=== PATIENT | female | born 1985 | race Caucasian/White ===

== ENCOUNTER 2016-05-09 01:43 | Emergency (ER) | payer OTHER ==
[2016-05-09] MEDS ORDERED: ONDANSETRON 4 MG/2 ML VIAL IVP ONE ×2 (02:03→04:17)
[2016-05-09] MEDS ORDERED: ONDANSETRON 4 MG/2 ML VIAL ONE ×2 (02:03→04:14)
[2016-05-09 02:27] LABS: % IMMATURE GRANULYOCYTES 0.3 % (0.0-1.1); ABSOLUTE IMMATURE GRANULOCYTES 0.02 10^3/uL (0.00-0.10); ADD DIFF? NO; ADD MORPH? NO; ADD SCAN? NO; ATYPICAL LYMPHOCYTE FLAG 0 (0-99); FRAGMENT RBC FLAG 0 (0-99); HEMATOCRIT 40.6 % (38.0-47.0); HEMOGLOBIN 14.2 g/dL (12.6-16.3); LEFT SHIFT FLG 0 (0-99); LIPEMIA HEMOLYSIS FLAG 90 (0-99); MEAN CELL VOLUME 82.9 fL (81.5-99.8); MEAN PLATELET VOLUME 10.6 fL (8.7-11.7); PLATELET CLUMPS FLAG 0 (0-99); PLATELET COUNT 192 10^3/uL (150-400); RED CELL DISTRIBUTION WIDTH 11.5 % (11.5-15.2)
[2016-05-09 02:37] LABS: ALANINE AMINOTRANSFERASE 43 IU/L (9-52); ALBUMIN 4.1 g/dL (3.5-5.0); ALKALINE PHOSPHATASE 53 IU/L (38-126); ANION GAP 13 mEq/L (8-16); ASPARTATE AMINOTRANSFERASE 28 IU/L (14-46); BILIRUBIN,TOTAL 0.6 mg/dL (0.1-1.4); CALCIUM 9.2 mg/dL (8.5-10.4); CARBON DIOXIDE 25 mEq/l (22-31); CHLORIDE 103 mEq/L (97-110); CREATININE 0.7 mg/dL (0.6-1.0); GLOMERULAR FILTRATION RATE > 60; GLUCOSE 104 mg/dL (70-100); POTASSIUM 3.3 mEq/L (3.5-5.2); SODIUM 141 mEq/L (134-144); TOTAL PROTEIN 7.1 g/dL (6.3-8.2)
[2016-05-09] MEDS ORDERED: IOPAMIDOL (ISOVUE-300) 50 ML VIAL IV ONE (03:30)
--- NOTE | 2016-05-09 04:03 | EDPHY ---
H & P Stated Complaint: ABD PAIN TONIGHT, DIARR 1930, NAUSEA, DRY HEAVES, NEG COLONOSCOPY,ANXIETY Time Seen by Provider: 05/09/16 02:00 HPI/ROS: HPI The patient presents with lower abdominal pain which is sharp and constant and has been present for the last 1 day. It is moderate in severity. She has a history of a celiac disease and 2 days ago underwent colonoscopy at [facility]. Biopsies were performed and she had a polyp removed. She says she was sleepy for the 1st day after the procedure and when she became more awake today she had this pain. She has also had nonbloody diarrhea with no vomiting. She does not have a fever. REVIEW OF SYSTEMS Constitutional: No fever, no chills. Eyes: No discharge. ENT: No sore throat. Cardiovascular: No chest pain, no palpitations. Respiratory: No cough, no shortness of breath. Gastrointestinal: See HPI Genitourinary: No hematuria. Musculoskeletal: No back pain. Skin: No rashes. Neurological: No headache. PMHx: Celiac disease Soc Hx: No tobacco use PHYSICAL General Appearance: Alert, no distress Eyes: Pupils equal and round no pallor or injection ENT, Mouth: Mucous membranes moist Respiratory: There are no retractions, lungs are clear to auscultation Cardiovascular: Regular rate and rhythm Gastrointestinal: Abdomen is soft with tenderness in both lower quadrants without any rebound or guarding Neurological: A&O, moves all extremities Skin: Warm and dry, no rashes Musculoskeletal: Neck is supple non tender Extremities: symmetrical, full range of motion Psychiatric: Patient is oriented X 3, there is no agitation Source: Patient, Family Exam Limitations: No limitations - Personal History LMP (Females 10-55): Irregular Current Tetanus/Diphtheria Vaccine: Unsure - Medical/Surgical History Hx Asthma: No Hx Chronic Respiratory Disease: No Hx Diabetes: No Hx Cardiac Disease: No Hx Renal Disease: No Hx Cirrhosis: No Hx Alcoholism: No Hx HIV/AIDS: No Hx Splenectomy or Spleen Trauma: No Other PMH: Ciliacs disease, ANEMIA - Social History Smoking Status: Never smoked Constitutional: Initial Vital Signs Temperature (C) 36.5 C 05/09/16 01:49 Heart Rate 99 05/09/16 01:49 Respiratory Rate 22 H 05/09/16 01:49 Blood Pressure 132/82 H 05/09/16 01:49 O2 Sat (%) 97 05/09/16 01:49 O2 Delivery Mode Room Air Allergies/Adverse Reactions: gluten [Gluten] Allergy (Verified 05/09/16 01:48) rice Allergy (Verified 05/09/16 01:48) soy Allergy (Verified 05/09/16 01:48) Home Medications: Medication Instructions Recorded Amphet Asp and D/Amphet [Adderall 0 mg PO DAILY 08/04/10 10 mg] DULoxetine [Cymbalta] 0 mg PO HS 08/04/10 Supplements 05/09/16 Medical Decision Making ED Course/Re-evaluation: In the emergency room, IV line was established the patient was given IV fluids. She was given a dose of Zofran with some improvement in her symptoms. She said she was initially feeling panicky, though felt more calm after receiving the IV fluids. Basic labs were checked and were remarkable only for a slightly low potassium. I reexamined her and she had continued abdominal tenderness. Using shared decision making, I offered the patient CT scanning here in the emergency room now verses watchful waiting of her pain. She would like to proceed with CT scan because she feels the pain is above and beyond her usual. CT scan was performed and showed constipation with no other acute findings. I discussed the results with her and she was happy to know that there were no serious findings. We plan to discharge her home, I have encouraged her to drink plenty of fluids. She will follow up with her GI doctors as planned. Differential Diagnosis: This is a 30-year-old female with celiac disease, anxiety who presents from home with lower abdominal pain 2 days after having an uncomplicated colonoscopy with biopsies and polypectomy performed. On exam, she has normal vital signs though is tender in her lower quadrants. Differential diagnosis includes bowel perforation, abscess, appendicitis, diverticulitis less likely, colitis. - Data Points Laboratory Results: Laboratory Results 05/09/16 02:05 05/09/16 02:05 05/09/16 02:05 WBC 7.32 10^3/uL (3.80-9.50) RBC 4.90 10^6/uL (4.18-5.33) Hgb 14.2 g/dL (12.6-16.3) Hct 40.6 % (38.0-47.0) MCV 82.9 fL (81.5-99.8) MCH 29.0 pg (27.9-34.1) MCHC 35.0 g/dL (32.4-36.7) RDW 11.5 % (11.5-15.2) Plt Count 192 10^3/uL (150-400) MPV 10.6 fL (8.7-11.7) Neut % (Auto) 55.5 % (39.3-74.2) Lymph % (Auto) 36.7 % (15.0-45.0) [place] % (Auto) 6.6 % (4.5-13.0) Eos % (Auto) 0.8 % (0.6-7.6) Baso % (Auto) 0.1 L % (0.3-1.7) Nucleat RBC Rel Count 0.0 % (0.0-0.2) Absolute Neuts (auto) 4.06 10^3/uL (1.70-6.50) Absolute Lymphs (auto) 2.69 10^3/uL (1.00-3.00) Absolute Monos (auto) 0.48 10^3/uL (0.30-0.80) Absolute Eos (auto) 0.06 10^3/uL (0.03-0.40) Absolute Basos (auto) 0.01 L 10^3/uL (0.02-0.10) Absolute Nucleated RBC 0.00 10^3/uL (0-0.01) Immature Gran % 0.3 % (0.0-1.1) Immature Gran # 0.02 10^3/uL (0.00-0.10) Sodium 141 mEq/L (134-144) Potassium 3.3 L mEq/L (3.5-5.2) Chloride 103 mEq/L (97-110) Carbon Dioxide 25 mEq/l (22-31) Anion Gap 13 mEq/L (8-16) BUN 15 mg/dL (7-23) Creatinine 0.7 mg/dL (0.6-1.0) Estimated GFR > 60 Glucose 104 H mg/dL (70-100) Calcium 9.2 mg/dL (8.5-10.4) Total Bilirubin 0.6 mg/dL (0.1-1.4) AST 28 IU/L (14-46) ALT 43 IU/L (9-52) Alkaline Phosphatase 53 IU/L (38-126) Total Protein 7.1 g/dL (6.3-8.2) Albumin 4.1 g/dL (3.5-5.0) Medications Given: Discontinued Medications Ondansetron HCl (Zofran) 4 mg IVP EDNOW ONE Stop: 05/09/16 02:04 Last Admin: 05/09/16 02:09 Dose: 4 mg Departure - Departure Disposition: Home, Routine, Self-Care Clinical Impression: Abdominal pain Condition: Good Instructions: Acute Abdominal Pain (ED) Additional Instructions: Please make sure to drink plenty of fluids. You can take Tylenol as needed for the pain or start taking the medication that was prescribed by the steam pressure chamber operator. You should return to the emergency room if your worse in any way. Referrals: Annelise Milian MD [Primary Care Provider] - As per Instructions
[2016-05-09] MEDS ORDERED: ONDANSETRON 4MG PREPACK#2 BTL TAKEHOME ONE ×2 (04:11→04:17)
[2016-05-09 04:17] VITALS: RESP 16
[2016-05-09 04:50] VITALS: BP 116/62; PULSE 72; TEMP 97.9; O2SAT 98
--- NOTE | 2016-05-09 09:47 | CT ---
CT Scan of the Abdomen and Pelvis (With Contrast) May 09, 2016 Indication: Abdominal pain. Recent colonoscopy. Technique: No oral or rectal contrast. 90 mL of Isovue-300 were given intravenously by machine power injection. Multidetector helical CT imaging was performed from the diaphragm to the symphysis pubis . Dose reduction techniques were utilized. Findings: No pneumoperitoneum, retroperitoneal gas, free fluid, abscess, lymphadenopathy, or mass. La rge volume retained stool is present throughout the colon and moderate volume of food products are pr esent throughout the mildly distended stomach. The appendix is normal. Mild periportal edema and distention of the inferior vena cava are suggestive of aggressive IV hydrat ion. The liver, spleen, pancreas, gallbladder, and adrenal glands are normal. The abdominal aorta is normal caliber. No plaque. The uterus, ovaries, and urinary bladder are normal. Lung bases are clear. The heart size is normal. Normal bones. Impression: 1. No evidence of bowel perforation. 2. Constipation. 3. Normal solid organs. 4. Normal appendix. The study was performed as an emergency on-call case and discussed by telephone with Dr. Gomez 4:00 a.m. The final interpretation is concordant with the original communication.
== END 2016-05-09 04:50 | disposition home or self-care (01) ==
DX: R10.31 Right lower quadrant pain (principal); R10.32 Left lower quadrant pain
CPT/HCPCS: 96374; J2405; Q9967

== ENCOUNTER 2016-11-14 07:29 | Emergency (ER) | payer OTHER ==
[2016-11-14] MEDS ORDERED: HALOPERIDOL LACT 5 MG/ML INJ IVP ONE (07:50)
[2016-11-14] MEDS ORDERED: NS 1,000 ML IV ONE ×2 (07:50→08:08)
--- NOTE | 2016-11-14 07:55 | EDPHY ---
H & P Stated Complaint: N/V/D fever Time Seen by Provider: 11/14/16 07:37 HPI/ROS: Chief Complaint: Diarrhea, abdominal cramping and vomiting HPI: 30-year-old woman past medical history of celiac disease, irritable bowel and fibromyalgia is presenting complaining of diarrhea for the last week which got worse last night and had 1 episode of vomiting last night. She has a significant history of gastrointestinal problems and has had similar episodes in the past. She is followed by [facility]. She was trialed on a course of Creon, pancreatic enzymes with some improvement but she ran out of those about a week ago and cannot afford them as they are quite expensive. Abdominal cramping is worse is a 9/10. It is down to about a 6 on 10 now. She has been taking hyoscyamine and Zofran. Denies any hematemesis or melena or hematochezia. No chest pain or shortness of breath. No urinary symptoms. Last menstrual cycle is now. She is not . ROS: 10 point Review of Systems is negative except as noted in the HPI. PMH: Celiac disease, irritable bowel syndrome, fibromyalgia Medications: Adderall, Cymbalta, Zofran p.r.n., hyoscyamine p.r.n. Allergies: Medicines with food additives, multiple food allergies Social History: No smoking, no alcohol, no recreational drug use Family History: non-contributory Physical Exam: Gen: Awake, Alert, No Distress HEENT: Nose: no rhinorrhea Eyes: PERRLA, EOMI Mouth: Moist mucosa Neck: Supple, no JVD Chest: nontender, lungs clear to auscultation Heart: S1, S2 normal, no murmur Abd: Soft, diffuse mild tenderness, no guarding Back: no CVA tenderness, no midline tenderness Ext: no edema, non-tender Skin: no rash Neuro: CN II-XII intact, Sensation grossly intact, Strength 5/5 in bilateral upper and lower extremities - Personal History LMP (Females 10-55): Now Current Tetanus/Diphtheria Vaccine: Unsure Current Tetanus Diphtheria and Acellular Pertussis (TDAP): Unsure - Medical/Surgical History Hx Asthma: No Hx Chronic Respiratory Disease: No Hx Diabetes: No Hx Cardiac Disease: No Hx Renal Disease: No Hx Cirrhosis: No Hx Alcoholism: No Hx HIV/AIDS: No Hx Splenectomy or Spleen Trauma: No Other PMH: IBS, Ciliacs disease, ANEMIA - Social History Smoking Status: Never smoked Constitutional: Initial Vital Signs Temperature (C) 36.5 C 11/14/16 07:32 Heart Rate 81 11/14/16 07:32 Respiratory Rate 16 11/14/16 07:32 Blood Pressure 123/98 H 11/14/16 07:32 O2 Sat (%) 98 11/14/16 07:32 O2 Delivery Mode Room Air Allergies/Adverse Reactions: gluten [Gluten] Allergy (Verified 05/09/16 01:48) rice Allergy (Verified 05/09/16 01:48) soy Allergy (Verified 05/09/16 01:48) Home Medications: Medication Instructions Recorded Amphet Asp and D/Amphet [Adderall 0 mg PO DAILY 08/04/10 10 mg] DULoxetine [Cymbalta] 0 mg PO HS 08/04/10 Supplements 05/09/16 Medical Decision Making ED Course/Re-evaluation: 30-year-old with a history of chronic gastrointestinal problems presenting with diarrhea and abdominal cramping and 1 episode of vomiting since discontinuing her pancreatic enzymes about a week ago. She is clinically dehydrated. She has some mild tenderness but otherwise benign abdomen. She is being followed by hair or beauty salon assistant for this. Will place an IV and check baseline electrolytes and blood work. Will give her IV fluids and some haloperidol IV for both her cramping and her nausea. 0950 patient is significantly improved after 2 L of fluid and some IV Haldol. Laboratory evaluations are entirely normal. She is tolerating p. o.. Plan will be to discharge with follow-up with a hair or beauty salon assistant, return for worsening. There is no evidence of significant acute surgical intra-abdominal process at this time. - Data Points Laboratory Results: Laboratory Results 11/14/16 07:46 11/14/16 07:46 11/14/16 11/14/16 07:46 07:46 WBC 8.45 10^3/uL 10^3/uL (3.80-9.50) RBC 5.21 10^6/uL 10^6/uL (4.18-5.33) Hgb 15.1 g/dL g/dL (12.6-16.3) Hct 45.0 % % (38.0-47.0) MCV 86.4 fL fL (81.5-99.8) MCH 29.0 pg pg (27.9-34.1) MCHC 33.6 g/dL g/dL (32.4-36.7) RDW 11.9 % % (11.5-15.2) Plt Count 204 10^3/uL 10^3/uL (150-400) MPV 10.2 fL fL (8.7-11.7) Neut % (Auto) 77.5 % H % (39.3-74.2) Lymph % (Auto) 14.9 % L % (15.0-45.0) [place] % (Auto) 6.3 % % (4.5-13.0) Eos % (Auto) 0.8 % % (0.6-7.6) Baso % (Auto) 0.1 % L % (0.3-1.7) Nucleat RBC Rel Count 0.0 % % (0.0-0.2) Absolute Neuts (auto) 6.55 10^3/uL H 10^3/uL (1.70-6.50) Absolute Lymphs (auto) 1.26 10^3/uL 10^3/uL (1.00-3.00) Absolute Monos (auto) 0.53 10^3/uL 10^3/uL (0.30-0.80) Absolute Eos (auto) 0.07 10^3/uL 10^3/uL (0.03-0.40) Absolute Basos (auto) 0.01 10^3/uL L 10^3/uL (0.02-0.10) Absolute Nucleated RBC 0.00 10^3/uL 10^3/uL (0-0.01) Immature Gran % 0.4 % % (0.0-1.1) Immature Gran # 0.03 10^3/uL 10^3/uL (0.00-0.10) Sodium 142 mEq/L mEq/L (134-144) Potassium 4.2 mEq/L mEq/L (3.5-5.2) Chloride 105 mEq/L mEq/L (97-110) Carbon Dioxide 24 mEq/l mEq/l (22-31) Anion Gap 13 mEq/L mEq/L (8-16) BUN 15 mg/dL mg/dL (7-23) Creatinine 0.8 mg/dL mg/dL (0.6-1.0) Estimated GFR > 60 Glucose 82 mg/dL mg/dL (70-100) Calcium 9.4 mg/dL mg/dL (8.5-10.4) Total Bilirubin 0.9 mg/dL mg/dL (0.1-1.4) Conjugated Bilirubin 0.1 mg/dL mg/dL (0.0-0.5) Unconjugated Bilirubin 0.8 mg/dL mg/dL (0.0-1.1) AST 25 IU/L IU/L (14-46) ALT 35 IU/L IU/L (9-52) Alkaline Phosphatase 40 IU/L IU/L (38-126) Total Protein 7.8 g/dL g/dL (6.3-8.2) Albumin 4.7 g/dL g/dL (3.5-5.0) Lipase 194.0 IU/L IU/L (23-300) Medications Given: Discontinued Medications Haloperidol Lactate (Haldol Injection) 2.5 mg IVP EDNOW ONE Stop: 11/14/16 07:51 Last Admin: 11/14/16 08:01 Dose: 2.5 mg Sodium Chloride (Ns) 1,000 mls @ 0 mls/hr IV ONCE ONE PRN Reason: Wide Open Stop: 11/14/16 07:51 Last Admin: 11/14/16 08:02 Dose: 1,000 mls Sodium Chloride (Ns) 1,000 mls @ 0 mls/hr IV ONCE ONE PRN Reason: Wide Open Stop: 11/14/16 08:09 Last Admin: 11/14/16 08:21 Dose: 1,000 mls Departure - Departure Disposition: Home, Routine, Self-Care Clinical Impression: Abdominal pain, Diarrhea Condition: Good Instructions: Acute Diarrhea (ED), Abdominal Pain (ED) Additional Instructions: Follow up with your primary care physician and a hair or beauty salon assistant in 2-3 days for re-evaluation. Return to the emergency depart for increasing uncontrolled pain, uncontrolled diarrhea or vomiting, fevers, chills, or any other concerns. Referrals: Annelise Milian MD [Primary Care Provider] - As per Instructions
[2016-11-14 07:56] LABS: % IMMATURE GRANULYOCYTES 0.4 % (0.0-1.1); ABSOLUTE IMMATURE GRANULOCYTES 0.03 10^3/uL (0.00-0.10); ADD DIFF? NO; ADD MORPH? NO; ADD SCAN? NO; ATYPICAL LYMPHOCYTE FLAG 0 (0-99); FRAGMENT RBC FLAG 0 (0-99); HEMOGLOBIN 15.1 g/dL (12.6-16.3); LEFT SHIFT FLG 0 (0-99); LIPEMIA HEMOLYSIS FLAG 80 (0-99); MEAN CELL HEMOGLOBIN CONCENTR. 33.6 g/dL (32.4-36.7); MEAN CELL VOLUME 86.4 fL (81.5-99.8); MEAN PLATELET VOLUME 10.2 fL (8.7-11.7); PLATELET CLUMPS FLAG 10 (0-99); PLATELET COUNT 204 10^3/uL (150-400); RED BLOOD CELL COUNT 5.21 10^6/uL (4.18-5.33); RED CELL DISTRIBUTION WIDTH 11.9 % (11.5-15.2)
[2016-11-14 08:16] LABS: ALANINE AMINOTRANSFERASE 35 IU/L (9-52); ALBUMIN 4.7 g/dL (3.5-5.0); ALKALINE PHOSPHATASE 40 IU/L (38-126); ANION GAP 13 mEq/L (8-16); ASPARTATE AMINOTRANSFERASE 25 IU/L (14-46); BILIRUBIN,TOTAL 0.9 mg/dL (0.1-1.4); BILIRUBIN-CONJUGATED 0.1 mg/dL (0.0-0.5); BILIRUBIN-UNCONJUGATED 0.8 mg/dL (0.0-1.1); CALCIUM 9.4 mg/dL (8.5-10.4); CARBON DIOXIDE 24 mEq/l (22-31); CHLORIDE 105 mEq/L (97-110); CREATININE 0.8 mg/dL (0.6-1.0); GLOMERULAR FILTRATION RATE > 60; GLUCOSE 82 mg/dL (70-100); POTASSIUM 4.2 mEq/L (3.5-5.2); SODIUM 142 mEq/L (134-144); TOTAL PROTEIN 7.8 g/dL (6.3-8.2)
[2016-11-14 10:02] VITALS: BP 128/67; PULSE 82; RESP 18; TEMP 98.1; O2SAT 95
== END 2016-11-14 10:02 | disposition home or self-care (01) ==
DX: R19.7 Diarrhea, unspecified (principal); R10.84 Generalized abdominal pain
CPT/HCPCS: 96374

== ENCOUNTER 2016-11-14 13:48 | Emergency (ER) | payer OTHER ==
[2016-11-14 13:56] VITALS: RESP 16; TEMP 98.2
[2016-11-14] MEDS ORDERED: FAMOTIDINE 20 MG TAB ONE (14:00)
[2016-11-14] MEDS ORDERED: predniSONE 20 MG TAB ONE (14:00)
[2016-11-14] MEDS ORDERED: diphenhydrAMINE 50 MG CAP PO ONE (14:01)
[2016-11-14] MEDS ORDERED: predniSONE 20 MG TAB PO ONE (14:04)
[2016-11-14] MEDS ORDERED: diphenhydrAMINE 25 MG CAP PO ONE (14:05)
--- NOTE | 2016-11-14 14:57 | EDPHY ---
H & P Stated Complaint: Allergic reaction Source: Patient Exam Limitations: No limitations - Personal History LMP (Females 10-55): Now Current Tetanus/Diphtheria Vaccine: Unsure Current Tetanus Diphtheria and Acellular Pertussis (TDAP): Unsure - Medical/Surgical History Hx Asthma: No Hx Chronic Respiratory Disease: No Hx Diabetes: No Hx Cardiac Disease: No Hx Renal Disease: No Hx Cirrhosis: No Hx Alcoholism: No Hx HIV/AIDS: No Hx Splenectomy or Spleen Trauma: No Other PMH: IBS, Ciliacs disease, ANEMIA - Social History Smoking Status: Never smoked Time Seen by Provider: 11/14/16 14:13 HPI/ROS: CHIEF COMPLAINT: hives HISTORY OF PRESENT ILLNESS: 30-year-old female presents emergency department with hives to her neck, ears, arms and legs. Patient was seen in the emergency department this morning for abdominal pain and was given IV Haldol. She was discharged home and went to sleep, she reports she felt itchy as she was sleeping, woke up an hour and half prior to arrival and noticed a rash to her neck. Patient denies tongue swelling, throat swelling, difficulty breathing, wheezing. She denies fevers or chills. Patient reports no new abdominal pain, no diarrhea. REVIEW OF SYSTEMS: A comprehensive 10 point review of systems is otherwise negative aside from elements mentioned in the history of present illness. (Sofi Mann) - Physical Exam Exam: Physical Exam Gen: Alert and Oriented, NAD HEENT: PERRL, moist mucous membranes, uvula midline, no oropharynx swelling NECK: no meningismus CV: regular rate and regular rhythm PULM: CTAB, no wheezes NEURO: Neurologically grossly intact EXTREMITIES: normal appearing SKIN: Urticaria to trunk, neck, ears, antecubital fossas bilaterally and behind the knees PSYCH: answers questions appropriately. (Sofi Mann) Constitutional: Initial Vital Signs Temperature (C) 36.8 C 11/14/16 13:53 Heart Rate 102 H 11/14/16 13:53 Respiratory Rate 16 11/14/16 13:53 Blood Pressure 102/74 11/14/16 13:53 O2 Sat (%) 97 11/14/16 13:53 O2 Delivery Mode Room Air Allergies/Adverse Reactions: gluten [Gluten] Allergy (Verified 05/09/16 01:48) haloperidol [From Haldol] Allergy (Verified 11/14/16 13:56) rice Allergy (Verified 05/09/16 01:48) soy Allergy (Verified 05/09/16 01:48) Home Medications: Medication Instructions Recorded Amphet Asp and D/Amphet [Adderall 0 mg PO DAILY 08/04/10 10 mg] DULoxetine [Cymbalta] 0 mg PO HS 08/04/10 Supplements 05/09/16 EPINEPHRINE [EPIPEN] 0.3 mg IM ONCE #2 syr 11/14/16 predniSONE 60 mg PO DAILY #15 tab 11/14/16 Medical Decision Making ED Course/Re-evaluation: Patient with urticaria from IV Haldol she received 6 hours prior to arrival. She has no evidence of anaphylaxis. Patient is given oral Benadryl and prednisone, she refuses the Pepcid. 320pm-on re-evaluation the patient's urticaria is fading. She continues to deny difficulty breathing, swallowing, throat swelling. She will be discharged home with prescription for prednisone and EpiPen. I have recommended Benadryl around the clock. Patient is given strict return precautions for any worsening symptoms, new symptoms or concerns. (Sofi Mann) I did not see this patient while she was in the emergency department. However her care was discussed with the nurse practitioner while the patient was in the department. I agree with treatment plan and management (Anthony Sims) Differential Diagnosis: The differential diagnosis included but was not limited to angioedema, anaphylaxis, anaphylactoid reaction, urticarial reaction, and other infectious causes for skin rash. (Sofi Mann) - Data Points Medications Given: Discontinued Medications Diphenhydramine HCl (Benadryl) 50 mg PO EDNOW ONE Stop: 11/14/16 14:06 Last Admin: 11/14/16 14:09 Dose: 50 mg Prednisone (Prednisone) 60 mg PO EDNOW ONE Stop: 11/14/16 14:05 Last Admin: 11/14/16 14:10 Dose: 60 mg Departure - Departure Disposition: Home, Routine, Self-Care Clinical Impression: Urticaria Allergic reaction Qualifiers: Encounter type: initial encounter Qualified Code(s): T78.40XA - Allergy, unspecified, initial encounter Condition: Good Instructions: Urticaria (ED), General Allergic Reaction (ED) Additional Instructions: Take 50 mg of Benadryl every 8 hours for 3-5 days, take 60 mg of prednisone daily for 5 days. Use EpiPen immediately for any tongue swelling, difficulty breathing, wheezing, throat swelling and return to the emergency department. Referrals: Annelise Milian MD [Primary Care Provider] - As per Instructions Prescriptions: EPINEPHRINE [EPIPEN] 0.3 mg IM ONCE #2 syr predniSONE 60 mg PO DAILY #15 tab
[2016-11-14 15:35] VITALS: BP 125/78; PULSE 100; O2SAT 95
== END 2016-11-14 15:35 | disposition home or self-care (01) ==
DX: L50.0 Allergic urticaria (principal)